=== PATIENT | female | born 1970 | race American Indian/Alaskan Native ===

== ENCOUNTER 2016-12-09 03:20 | Emergency (ER) | payer OTHER ==
[~2016-12-09] VITALS: Ht 157.5 cm; Wt 77.1 kg
[~2016-12-09 03:20] MED LIST: ACETAMINOPHEN325 M1 PO; AVELOX400 MG PO; DOXYCYCLINE HY100 MG PO; FISH OIL 1,0001 EAC2 PO; FLAGYL500 MG PO; NORCO 10-325 T1 EACH PO; NORCO 5-325 TA1 EACH PO; TRAMADOL HCL50 MG PO
[2016-12-09] MEDS ORDERED: CLINDAMYCIN HC300 MG PO (03:32)
[2016-12-09] MEDS ORDERED: MUPIROCIN15 GM TOP (03:33)
[2016-12-09] MEDS ORDERED: DICLOFENAC SODI75 MG PO (04:19)
[2016-12-09] MEDS ORDERED: CYCLOBENZAPRINE10 MG PO (04:19)
== END 2016-12-09 04:40 | disposition home or self-care (01) ==
LOC: ED 03:20
DX: S16.1XXA Strain of muscle, fascia and tendon at neck level, initial encounter (principal); F31.9 Bipolar disorder, unspecified; X58.XXXA Exposure to other specified factors, initial encounter; Z98.51 Tubal ligation status; Z90.49 Acquired absence of other specified parts of digestive tract; Z88.0 Allergy status to penicillin; Z88.8 Allergy status to other drugs, medicaments and biological substances; Z88.5 Allergy status to narcotic agent; Z88.2 Allergy status to sulfonamides; Z79.899 Other long term (current) drug therapy; Z79.2 Long term (current) use of antibiotics
CPT/HCPCS: 72040; 96372; 99283; J1885

== ENCOUNTER 2018-05-11 09:26 | Emergency (ER) | payer OTHER ==
[~2018-05-11] VITALS: Ht 157.5 cm; Wt 77.1 kg
[~2018-05-11 09:26] MED LIST changes: +CLINDAMYCIN HC300 MG PO; +CYCLOBENZAPRINE10 MG PO; +DICLOFENAC SODI75 MG PO; +MUPIROCIN15 GM TOP
[2018-05-11] MEDS ORDERED: RIFAMPIN300 MG PO (09:37)
[2018-05-11] MEDS ORDERED: CLEOCIN HCL300 MG PO (09:38)
[2018-05-11] MEDS ORDERED: LEVOTHYROXINE50 MCG PO (09:39)
[2018-05-11] MEDS ORDERED: CYCLOBENZAPRINE10 MG PO (10:07)
[2018-05-11] MEDS ORDERED: NORCO 5-325 TA1 EACH PO (12:39)
== END 2018-05-11 12:51 | disposition home or self-care (01) ==
LOC: ED 09:26
DX: M54.5 Low back pain (principal); F31.9 Bipolar disorder, unspecified; Z88.1 Allergy status to other antibiotic agents; Z88.0 Allergy status to penicillin; Z88.2 Allergy status to sulfonamides; Z79.899 Other long term (current) drug therapy
CPT/HCPCS: 74176; 81001; 96372; 99284-25; J1170; J1885

== ENCOUNTER 2023-12-26 09:52 | Emergency (ER) | payer OTHER ==
[~2023-12-26] VITALS: Ht 157.5 cm; Wt 98.6 kg
[~2023-12-26 09:52] MED LIST changes: +CLEOCIN HCL300 MG PO; +LEVOTHYROXINE50 MCG PO; +RIFAMPIN300 MG PO
[2023-12-26] MEDS ORDERED: RIFAMPIN150 MG PO (10:13)
[2023-12-26] MEDS ORDERED: IBUPROFEN200 MG PO (10:14)
[2023-12-26] MEDS ORDERED: TYLENOL EXTRA500 MG PO (10:14)
[2023-12-26] MEDS ORDERED: ACETAMINOPHEN 500 MG TAB PO ONE (10:15)
[2023-12-26] MEDS ORDERED: CEPHALEXIN MONOHYDRATE 500 MG CAP PO ONE (11:30)
[2023-12-26] MEDS ORDERED: HYDROmorphone HCL 2 MG/ML VIAL IM ONE (11:45)
[2023-12-26] MEDS ORDERED: CEPHALEXIN500 M1 PO (11:46)
[2023-12-26] MEDS ORDERED: HYDROCODON-ACE1 EA11 PO (12:18)
[2023-12-26 12:24] VITALS: BP 117/71
== END 2023-12-26 12:24 | disposition home or self-care (01) ==
LOC: ED 09:52
DX: N61.1 Abscess of the breast and nipple (principal); Z88.1 Allergy status to other antibiotic agents; Z88.0 Allergy status to penicillin; Z88.5 Allergy status to narcotic agent; Z88.2 Allergy status to sulfonamides; Z79.899 Other long term (current) drug therapy
CPT/HCPCS: 10060; 76642; 99283-25; A9270; J1170

== ENCOUNTER 2024-10-14 14:41 | Emergency (ER) | payer OTHER ==
[~2024-10-14] VITALS: Ht 157.5 cm; Wt 101.0 kg
[~2024-10-14 14:41] MED LIST changes: +CEPHALEXIN500 M1 PO; +HYDROCODON-ACE1 EA11 PO; +IBUPROFEN200 MG PO; +RIFAMPIN150 MG PO; +TYLENOL EXTRA500 MG PO
[2024-10-14] MEDS ORDERED: LATANOPROST2.5 ML OPTH (15:35)
[2024-10-14] MEDS ORDERED: OMEGA-3 FISH O1 EAC4 PO (15:35)
[2024-10-14 15:43] LABS: BASOPHILS 1.2 % (0.1-1.2); EOSINOPHILS 1.8 % (0.7-5.8); HEMATOCRIT 42.2 % (34.1-44.9); HEMOGLOBIN 13.9 g/dL (11.2-15.7); LYMPHOCYTES 24.5 % (19.3-51.7); MCH 28.1 PG (25.6-32.2); MCHC 32.9 g/dL (32.2-35.5); MCV 85.4 fL (79.4-94.8); MONOCYTES 8.9 % (4.7-12.5); NEUTROPHILS 63.3 % (34.0-71.1); PLATELET COUNT 394 K/uL (182-369); RBC 4.94 M/uL (3.93-5.22)
[2024-10-14] MEDS ORDERED: ondansetron HCL 4 MG/2 ML VIAL IV ONE (15:45)
[2024-10-14 15:51] LABS: ALBUMIN 3.8 g/dL (3.4-5.0); ALBUMIN/GLOBULIN RATIO 0.97 (1.1-2.4); ANION GAP 13.8 (7-21); BILIRUBIN, TOTAL 0.3 mg/dL (0.2-1.0); BUN/CREATININE RATIO 14.42 (6.0-28.6); CREATININE, SERUM 1.04 mg/dL (0.55-1.02); POTASSIUM 3.8 mmol/L (3.5-5.1); PROTEIN, TOTAL 7.7 g/dL (6.4-8.2)
[2024-10-14] MEDS ORDERED: MORPHINE SULFATE 4 MG/ML VIAL IV ONE (17:45)
[2024-10-14 18:45] VITALS: BP 127/86
== END 2024-10-14 18:45 | disposition home or self-care (01) ==
LOC: ED 14:41
PROVIDERS: Emergency Medicine
DX: N61.1 Abscess of the breast and nipple (principal); Z88.0 Allergy status to penicillin; Z88.5 Allergy status to narcotic agent; Z88.2 Allergy status to sulfonamides
CPT/HCPCS: 36415; 71260; 80053; 85025; 87070; 87205; 99284-25; J2270; J2405; Q9967

== ENCOUNTER 2025-02-12 08:09 | Inpatient (IN) | payer OTHER ==
[~2025-02-12] VITALS: Ht 157.5 cm; Wt 93.4 kg
[~2025-02-12 08:09] MED LIST changes: +LATANOPROST2.5 ML OPTH; +OMEGA-3 FISH O1 EAC4 PO
[2025-02-12] MEDS ORDERED: VITAMIN D3125 MC1 PO (08:28)
[2025-02-12 08:59] LABS: BASOPHILS 1.3 % (0.1-1.2); EOSINOPHILS 1.9 % (0.7-5.8); LYMPHOCYTES 23.8 % (19.3-51.7); MCH 28.7 PG (25.6-32.2); MCHC 33.4 g/dL (32.2-35.5); MCV 85.8 fL (79.4-94.8); MONOCYTES 7.0 % (4.7-12.5); NEUTROPHILS 65.8 % (34.0-71.1); RBC 5.20 M/uL (3.93-5.22)
[2025-02-12] MEDS ORDERED: OXYCODONE/APAP 5/325 TAB PO ONE (09:15)
[2025-02-12] MEDS ORDERED: ONDANSETRON 4 MG TAB ODT SL ONE (09:15)
[2025-02-12 09:17] LABS: ALT (SGPT) 31.0 U/L (14-59); AST (SGOT) 14.0 U/L (15-37); GLOMERULAR FILTRATION RATE,EST 89.0 mL/min (>60); PROTEIN, TOTAL 7.5 g/dL (6.4-8.2); UREA NITROGEN 10.0 mg/dL (7-18)
[2025-02-12 10:28] LABS: BLOOD/HGB, URINE NEGATIVE (Negative); KETONE, URINE NEGATIVE (Negative); LEUK ESTERASE, URINE NEGATIVE (negative); NITRITE, URINE NEGATIVE (negative)
[2025-02-12] MEDS ORDERED: CLINDAMYCIN PHOSPHATE/D5W 900 MG/50 ML PIGGYBACK IV ONE (10:30)
[2025-02-12] MEDS ORDERED: SEVOFLURANE 250 ML BTL INH ONE (12:18)
[2025-02-12 13:00] VITALS: BP 136/92
[2025-02-12] MEDS ORDERED: MORPHINE SULFATE 4 MG/ML VIAL IV PRN (13:00)
--- NOTE | 2025-02-12 13:16 | NUR ---
1255 - ADMITTED PT TO ROOM 115 VIA STRETCHER FROM ER. ACOMPANIED BY MOTHER
--- NOTE | 2025-02-12 13:48 | NUR ---
CALL TO PHARMACY, CLINDAMYCIN GIVEN AT 1043 IN ER. NEXT DOSE ORDERED FOR 1400, ORDER FOR Q8HRS. PER HARJINDER IN PHARMACY, HOLD THE 1400 DOSE AND GET BACK ON TRACK AT 2200. PRIMARY RN NOTIFIED OF ORDERS.
--- NOTE | 2025-02-12 13:52 | NUR ---
pt npo, tolerating well, does own oral care. up to brp, voided, back to bed, tolerated well, independent. medicated with morphine 4mg iv c/o R breast pain
[2025-02-12] MEDS ORDERED: CLINDAMYCIN PHOSPHATE/D5W 900 MG/50 ML PIGGYBACK IV SCH (14:00)
--- NOTE | 2025-02-12 15:32 | NUR ---
pt down for ct
[2025-02-12 15:49] VITALS: BP 116/50
[2025-02-12] MEDS ORDERED: XALATAN2.5 ML OU (15:49)
--- NOTE | 2025-02-12 16:22 | NUR ---
MED REC COMPLETE
--- NOTE | 2025-02-12 16:46 | NUR ---
back from DI, c/o feeling nauseated, will medicte with zofran
--- NOTE | 2025-02-12 16:58 | NUR ---
awake, c/o r breast p[ain 11/30, medicated with morphine 4mg IV, c/o feeling nauseated, medicated with Zofran 4mg IV. repositions self in bed, tolerating NPO status
--- NOTE | 2025-02-12 17:05 | NUR ---
Spoke with Joanie. She lives in town in a house with 1 step. She lives with her partner. She does not use any DME. She drives. She states her mom will help her as needed. She uses [facility]. She denies financial or safety concerns. States she has had issues with her breast since 2021. She had surgery in April and the wound has not closed. Will fu with pt tomorrow.
[2025-02-12 17:16] VITALS: BP 135/78
--- NOTE | 2025-02-12 18:35 | NUR ---
resting, eyes closed, no further c/o distress, on room air, repositions self in bed, voiding qs
[2025-02-12 18:37] VITALS: BP 135/78
--- NOTE | 2025-02-12 19:36 | NUR ---
RECEIVED REPORT FROM SIMON BAPTISTE. PT RESTING IN BED, REQUESTED HELP WITH EAR BUD PLACEMENT. DENIES ANY OTHER NEEDS OR CONCERNS AT THIS TIME. CALL LIGHT WITHIN REACH.
[2025-02-12] MEDS ORDERED: HYDROmorphone HCL 1 MG/ML SYR IV PRN (20:15)
[2025-02-12] MEDS ORDERED: LACTATED RINGER'S 1,000 ML IV SCH (20:15)
[2025-02-12] MEDS ORDERED: KETOROLAC TROMETHAMINE 30 MG/ML VIAL IV PRN (20:15)
--- NOTE | 2025-02-12 20:21 | NUR ---
DR MORRIS AT RN STATION.THIS RN ASKED MD IF HE WOULD LIKE THIS RN TO CALL IMAGING DEPT INTERPRETATION NOT YET VISIBLE. PER MD, HE ALREADY REVIEWED IMAGING, NO NEED. PRIMARY RN AWARE AND NO NEW ORDERS RECEIVED AT THIS TIME.
--- NOTE | 2025-02-12 20:30 | NUR ---
PT RESTING IN BED. UPDATED PT ON POC, MD IS ALLOWING REGULAR DIET UNTIL MIDNIGHT, THEN NPO. IVF INITIATED PER NEW ORDER, LR INFUSING. PT REPORTS 6/10 PAIN TO RIGHT BREAST W/ MOVEMENT, MINIMAL PAIN AT REST. LSC. HRR. BT HYPO, PT REPORTS INT NAUSEA. SANDWICH BOX AND MILK PROVIDED PER REQUEST. RIGHT BREAST HAS 2 OPEN AREA AT NIPPLE W/ SMALL AMT YELLOWISH DRNG. AREA CLEANSED AND SMALL GUAZE DRSG APPLIED. PT HAS VISITOR AT BEDSIDE. CALL LIGHT WITHIN REACH.
[2025-02-12 20:36] VITALS: BP 156/88
[2025-02-12] MEDS ORDERED: FAMOTIDINE 20 MG/ 2 ML VIAL IV SCH (21:00)
[2025-02-12 21:09] VITALS: BP 156/88
--- NOTE | 2025-02-12 21:16 | NUR ---
DR. MORRIS CONTACTED REGARDING ONGOING NAUSEA. NEW ORDER RECEIVED FOR PRN INAPSINE Q 6 HRS.
--- NOTE | 2025-02-12 21:30 | NUR ---
PRN IV INAPSINE ADMINISTERED PER NEW ORDER. PT REPORTS FEELING HOT AND COLD, FAN PROVIDED FOR COMFORT. ROUTINE TYLENOL GIVEN, REPORTS SOME RIGHT BREAST PAIN.
[2025-02-12] MEDS ORDERED: ACETAMINOPHEN 500 MG TAB PO SCH (22:00)
[2025-02-12] MEDS ORDERED: CEFAZOLIN SODIUM 2 GM in SODIUM CHLORIDE 0.9% 100 ML IV SCH (22:00)
--- NOTE | 2025-02-12 22:08 | NUR ---
IV CLINDAMYCIN INITIATED PER EMAR. PT RESTING ON RIGHT SIDE, REPORTS DECREASED NAUSEA AFTER IV INAPSINE. PT SIPPING ON 7UP ABLE.
--- NOTE | 2025-02-12 23:07 | NUR ---
PT SLEEPING ON RIGHT SIDE, APPEARS COMFORTABLE AT THIS TIME.
[2025-02-13] VITALS (13 sets, daily range): BP systolic 115–178; BP diastolic 72–94
--- NOTE | 2025-02-13 00:04 | NUR ---
PT AWAKE, SLEEPING BETWEEN CARE. PT IS NOW NPO. DENIES ANY OTHER NEEDS AT THIS TIME.
--- NOTE | 2025-02-13 01:30 | NUR ---
ASSISTED PT TO BR, VOIDS WNL. PT REPORTS FEELING MUCH BETTER, REPORTS SLEEPING OK. DENIES ANY FURTHER NEEDS.
--- NOTE | 2025-02-13 01:32 | NUR ---
MANAGER MUSIC OBTAINED VITALS AND I&O. PT STATES NO NEEDS AT THIS TIME. CALL LIGHT WITHIN REACH.
--- NOTE | 2025-02-13 05:51 | NUR ---
PT ASSISTED TO BR, SBA. VOIDS WNL. UP TO SINK FOR AM CARE AND ORAL CARE. MEDICATED PT W/ PRN TORADOL FOR C/O 11/30 RIGHT BREAST PAIN. RIGHT BREAST GUAZE DRSG W/ SMALL AMT DRIED YELLOW DRNG. PT UP IN RECLINER. CALL LIGHT WITHIN REACH. NPO AT THIS TIME.
--- NOTE | 2025-02-13 06:55 | NUR ---
scheduled iv abx reginald, primary rn connecting pt back to pump. iv site wnl. prn zofran also given-see emar. call light in reach, no additional needs or concerns.
--- NOTE | 2025-02-13 07:12 | NUR ---
Pt report received from SIMON Yeager. Pt is resting supine in bed with HOB elevated. Pt states she has mostly had issues with nausea but also states that she has pressure in her bowels like she needs to have a BM but when she goes to the bathroom to try, she doesn't . She states she has been passing "little toots" and was encouraged to continue ambulating and/or changing positions in bed to move the gas around. Pt denies any further needs at this time. Side rails up x4, bedside table and call light in reach. White board updated.
--- NOTE | 2025-02-13 07:45 | NUR ---
Advised by SIMON Nunez that she thinks this pt's IV has infiltrated. In with pt at this time to assess IV site. Left medial elbow appears "puffy" compared to the right elbow and pt reports stinging with flush, although there is blood return and she "tastes" saline. IVF stopped at this time and bathhouse attendant called and requested to place an U/S guided IV or assist with IV insertion as there have been multiple attempts, according to the pt.
--- NOTE | 2025-02-13 09:50 | NUR ---
In with pt for med administration and assessment. Pt is A&O, resting in bed with HOB elevated. She reports some nausea and is passing gas still. She states she has a headache, in the forehead, but wants to try an ice pack and heat pack to alternate and cover her forehead and eyes with first. Dr. Lamb in with pt to discuss surgical consent, pt verbalized understanding and signed consent, this RN to witness. Pt has no questions. Call light in reach.
--- NOTE | 2025-02-13 10:08 | NUR ---
INTO SEE PATIENT. PATIENT TO GO HOME WITH LIFE PARTNER WHEN MEDICALLY CLEARED FOR D/C. NO FUTHER CM NEEDS.
--- NOTE | 2025-02-13 12:08 | NUR ---
In with pt for wipe down, clean gown, and linen change. Aide Ame in to assist. LR on straight tubing with extension set spiked and hung. SIMON Covington from OR in to transfer pt to day surgery. Pt donned clean non-slip socks, clean gown, and returned to bed, SCDs applied. SIMON Covington transferred pt via bed to Day surgery at approximately 1215 hours. Pt's mother followed them and has the pt's cell phone. The rest of her personal belongings were placed in the closet in the pt's room.
[2025-02-13] MEDS ORDERED: MIDAZOLAM HCL 2 MG/2 ML VIAL ONE (12:17)
[2025-02-13] MEDS ORDERED: fentaNYL citrate 100 MCG/2 ML VIAL ONE (12:17)
[2025-02-13] MEDS ORDERED: LIDOCAINE HCL 2% 5 ML SDV ONE (12:17)
[2025-02-13] MEDS ORDERED: SODIUM CHLORIDE 0.9% 20 ML IV ONE (12:31)
[2025-02-13] MEDS ORDERED: CEFAZOLIN SOD 1,000 MG/10 ML VIAL ONE (12:31)
[2025-02-13] MEDS ORDERED: KETOROLAC TROMETHAMINE 30 MG/ML VIAL ONE (13:29)
[2025-02-13] MEDS ORDERED: ACETAMINOPHEN 1,000 MG/100 ML VIAL IV ONE (14:00)
[2025-02-13] MEDS ORDERED: DOXYCYCLINE HYCLATE 100 MG CAP PO SCH (14:00)
[2025-02-13] MEDS ORDERED: fentaNYL citrate 50 MCG/ML SDV ONE (14:01)
[2025-02-13] MEDS ORDERED: fentaNYL citrate 100 MCG/2 ML VIAL IV PRN (14:15)
--- NOTE | 2025-02-13 14:25 | NUR ---
02/13/25 1425 Shannan Ulrich 1340: PT ARRIVED TO PACU VIA BED. PT AROUSABLE TO STIMULI. PT ON 6L VIA MASK. PT HAD DRESSING IN PLACE TO RIGHT BREAST THAT WAS C/D/I. 1345: PT TITRATED TO RA AT THIS TIME 1350: PT HAS COMPLAINTS OF NAUSEA. GAVE INAPSINE IV AT THIS TIME. 1400: PT REPORTS NAUSEA WAS SLIGHTLY BETTER BUT HER BREST WAS PAINFUL. 9/10 AT THIS TIME. 25MCG FENTANYL GIVE IV AND 1G TYENOL IV GIVEN. 1421: PT CONTINUES TO COMPLAIN OF NAUSEA. GAVE 4MG ZOFRAN IV. 1425: PT REPORTS PAIN IS 6/10 AT THIS TIME. DRESSING TO RIGHT CHEST IS C/D/I.
--- NOTE | 2025-02-13 14:45 | NUR ---
Pt arrived to room, transferred via bed by INLAYER SILVER Kami. Pt is A&O, mother at bedside. Pt reports some nausea, however, pt has had all the anti emetics she can have at this time. Pt provided with an alcohol swab to smell which she states does help some. Pt reports she has to use the toilet to void. 1P SBA to the BSC. Pt reports feeling "woozy" but not dizzy or lightheaded. She was able to void 500ml clear yellow urine. SBA as pt transferred back in to bed. SCD's on, Tele #[id number] applied for bradycardia, VSS (P56), and pt positioned herself into a position of comfort (leaning towards her right side in bed with a pillow to support). Dressing is CDI. Side rails up x4, call light in reach. Personal belongings and bedside table in reach.
--- NOTE | 2025-02-13 16:18 | NUR ---
UR CLINICAL REVIEW: MCG-PER [facility]CG REVIEW MEETS INPT FOR RIGHT BREAST CELLULITIS WITH NEED FOR IV ABX AND I&D [facility] INPT 02/12/25 @ 2010 ORDER MATCHES REG CLINICALS FAXED TO [facility] FOR AUTH REVIEW DISCHARGE TO HOME WHEN STABLE 02/14/25 DC REVIEW
--- NOTE | 2025-02-13 16:55 | NUR ---
In with pt for hourly VS. Pt states she is feeling much better and is no longer experiencing nausea. She states she needs to use the toilet and is able to ambulate, SBA, with L&TM, to the toilet in the bathroom without issue or complaint. Pt voided 400ml clear yellow urine and ambulated back to bed unassisted. Pt requested to keep SCDs off as they make her legs sweaty, and she will flex and extend her feet and legs to keep blood flowing. Pt's mother is at bedside. Side rails up x3, call light in reach. Pt provided with more miguelina crackers and apple juice.
--- NOTE | 2025-02-13 18:26 | HP ---
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 HISTORY OF PRESENT ILLNESS: This 54-year-old woman is a patient of [facility] and presented to the emergency room today where she was evaluated by Dr. Jam Mccain with complaints of increasing pain in the central right breast with mild erythema and tenderness. Her problem dates back to 2021, at which time, she had a breast abscess, requiring incision and drainage. She has been episodically treated by Dr. Ramirez in [facility] in the [facility]. In April, she saw him again following an incision and drainage of the right breast area with removal of small portion of a breast duct. She called to Dr. Ramirez's office and apparently was told that there was nothing more that could be done for her and to have [facility] organized for her to see an ID doctor. It is unclear if she has been identified as having Zuska disease, though she is clinically suspicious for it. Quite notably, patient also has a concurrent history of hidradenitis suppurativa affecting dominantly her right axilla. She has had no inframammary involvement or groin involvement of that. She notes a flare in that disease at this time as well. Her last operation was in April of this year nine months ago, where infected tissue was removed and prolonged antibiotic course noted. PAST MEDICAL HISTORY: Notable for bipolar disease as well as a history of colonic polyps. She had a hidradenitis as previously identified. She does not drink alcohol. Does not smoke, though she does smoke marijuana. SURGICAL HISTORY: Includes labial surgery, neck plate with screws. Cadaveric bone with neck in the vertebrae, tubal ligation, cholecystectomy, cervical fusion, and removal of a right breast abscess and possibly cyst. She tells me her last mammogram was in 2021. She has no family history of breast cancer. ALLERGIES: Include penicillin, Cipro, codeine, ibuprofen, Bactrim. Electronically Signed By: THERESA MORRIS MD 02/13/25 1826 PATIENT NAME: LEELEE VALLES HISTORY AND PHYSICAL DATE OF : 70 REPORT #: [id number] PHYSICIAN: THERESA MORRIS MD PCP: TRANG JUDD PAC REPORT IS CONFIDENTIAL AND NOT TO BE RELEASED WITHOUT AUTHORIZATION [facility] [address], [place] [address] Signed CURRENT MEDICINES: At presentation include ibuprofen, Tylenol, vitamin D3, omega-3, fish oil. LABORATORY STUDIES: At presentation showed a white count of only 9.55, hematocrit 44.6, platelets 361,000. Chem profile normal. Creatinine 0.79. Prior to my evaluation, she did undergo an ultrasound of the breast which showed collections of minimally echogenic material medial and lateral to the right nipple communicating via retroareolar tunnel consistent with an abscess or cutaneo-cutaneous fistula. I had her undergo a CT scan of the breast for soft tissue evaluation of the breast tissue, which does not show any particular remarkable fluid collection at this time. REVIEW OF SYSTEMS: She denies any fever or chills. Has no shortness of breath or chest pain. Has no nipple discharge. The main complaint is central and lateral breast pain. PHYSICAL EXAMINATION: GENERAL: A pleasant, obese woman, who looks to be nontoxic. BMI is 37.7 with a height of 5 foot 2 inches, weight 93 kg. Trachea is midline. Chest shows normal respiratory excursion, pulses regular. Examination of the right breast shows an area of scarring in the medial aspect with nipple without significant distortion. She has no generalized cellulitic change, no edema. There is mild tenderness, however. Axilla was essentially notable for hidradenitis suppurativa. No draining sinuses at this moment, though she says it is "active." Abdomen is obese, but soft, easily palpated. 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 Recurrent abscesses are hallmark of the problem I have seen several times in the past. Drainage is the most important feature of it for those with drainable lesions (abscesses) and duct excision as undertaken by Dr. Ramirez beneficial in many cases. At this point, we will allow for regular diet tonight and tomorrow likely exploration in the operating room to provide for drainage in the area of tunneling that she had before. I am unaware of the relationship between Zuska disease and hidradenitis suppurativa, specifically whatever researched the matter. This does not appear to be hidradenitis of the breast; these cases I have seen almost always in the inframammary crease and not likely in the central portion of the breast, though this may be related to process or even the identical. I will need to investigate that further. Electronically Signed By: THERESA MORRIS MD 02/13/25 1826 PATIENT NAME: LEELEE VALLES HISTORY AND PHYSICAL DATE OF : 70 REPORT #: [id number] PHYSICIAN: THERESA MORRIS MD PCP: TRANG JUDD PAC REPORT IS CONFIDENTIAL AND NOT TO BE RELEASED WITHOUT AUTHORIZATION [facility] [address] [place], [place] [address] Signed MD LETICIA Sy/KYLE /[id number] cc: Dr. Kike Green [facility] Copies: ~ Electronically Signed By: THERESA MORRIS MD 02/13/25 1826 PATIENT NAME: LEELEE VALLES HISTORY AND PHYSICAL DATE OF : 70 REPORT #: [id number] PHYSICIAN: THERESA MORRIS MD PCP: TRANG JUDD PAC REPORT IS CONFIDENTIAL AND NOT TO BE RELEASED WITHOUT AUTHORIZATION
--- NOTE | 2025-02-13 19:37 | NUR ---
RECEIVED REPORT SIMON VALADEZ. PT RESTING IN BED, REPORTS SOME RIGHT BREAST PAIN. PRN IV DIALUDID OFFERED AND PT DECLINED AT THIS TIME, WANTS TO WAIT FOR TORADOL WHEN AVAIL.
--- NOTE | 2025-02-13 20:22 | NUR ---
CALL LIGHT ANSWERED. PT NEEDED TO USE BATHROOM. QUILL BUNCHER AND SORTER SBA TO BATHROOM. PT VOIDED AND ASSISTED BACK TO BED. PT STATES SHE HAS A HEADACHE. VITALS AND I&O OBTAINED. PT STATES NO FURTHER NEEDS AT THIS TIME. CALL LIGHT WITHIN REACH.
--- NOTE | 2025-02-13 20:30 | NUR ---
PT SITTING EOB. REPORTS HEADACHE AND RIGHT BREAST PAIN, PT EMDICATED W/ PRN IV TORADOL PER EMAR. PT ALSO GIVEN COFFEE FOR CAFFEINE HEADACHE. LSC, CPOX IN PLACE. HRR, TELE IN PLACE, HR 60'S. BTA. REPORTS SOME LOOSE STOOLS. PT PROVIDED W/ YOGURT PER REQUEST. DENIES NAUSEA. LAC IV INFUSING LR PER EMAR. RIGHT BREAST DRSG CDI. PT REPORTS RIGHT BREAST IS VERY TENDER. PT AMBULATED TO BR W/ SBA, VOIDS WNL. PT ALLOWED TO BE IND TO BR AT THIS TIME.
[2025-02-13] MEDS ORDERED: FAMOTIDINE 20 MG TAB PO SCH (21:00)
--- NOTE | 2025-02-13 22:39 | NUR ---
IV ATB ADMINISTERED PER EMAR. PT UP TO BR IND. REPORTS SOME URINARY FREQUENCY.
--- NOTE | 2025-02-14 00:45 | NUR ---
PT ASLEEP ON RIGHT SIDE, APPEARS COMFORTABLE. IVF INFUSING. CALL LIGHT WITHIN REACH.
[2025-02-14 01:48] VITALS: BP 128/68
--- NOTE | 2025-02-14 01:50 | NUR ---
PRODUCTION LINE TECHNICIAN OBTAINED VITALS AND I&O. PT STATES NO NEEDS AT THIS TIME. CALL LIGHT WITHIN REACH.
[2025-02-14 02:25] VITALS: BP 128/68
--- NOTE | 2025-02-14 02:54 | NUR ---
PT SLEEPING SOUNDLY ON RIGHT SIDE. CPOX IN PLACE.
[2025-02-14 05:52] VITALS: BP 137/95
[2025-02-14 06:06] VITALS: BP 137/95
--- NOTE | 2025-02-14 06:06 | NUR ---
PT UP IN RECLINER, GAS WELDING MACHINE OPERATOR OBTAINING VS. PT REPORTS NAUSEA CREEPING UP. NAFISA DELORES AND CRACKERS PROVIDED PER REQUEST. IV ATB STARTED PER EMAR. RIGHT BREAST DRSG CDI.
--- NOTE | 2025-02-14 06:31 | NUR ---
PT BACK IN BED, CONTINUES TO BE NAUSEATED. MEDICATED W/ PRN IV INAPSINE. IV ATB'S CONTINUE TO INFUSE.
--- NOTE | 2025-02-14 07:15 | NUR ---
REPORT RECIEVED FROM SIMON SETH. PATIENT RESTING IN BED WATCHING TV. PATIENT REPORTS NAUSEA "ISN'T GONE, BUT IS GETTING BETTER". PATIENT DENIES ANY NEEDS AT THIS TIME. CALL LIGHT AND PERSONAL BELONGINGS ARE WITHIN REACH. WHITE BOARD UPDATED.
--- NOTE | 2025-02-14 08:01 | NUR ---
PATIENT IV OCCLUDED. IV RESTARTED. PATIENT REPORTS "I'M DOING OKAY WHEN ASKED ABOUT HER NAUSEA. PATIENT DENIES ANY NEEDS AT THIS TIME. CALL LIGHT AND PERSONAL BELONGINGS ARE WITHIN REACH.
--- NOTE | 2025-02-14 09:39 | NUR ---
PATIENT MEDICATED PER EMAR. PATIENT ASSESSMENT COMPLETED. PATIENT IS ALERT AND ORIENTED AND DENIES ANY PAIN OR NAUSEA AT THIS TIME. PATIENT DRESSING IS CLEAN DRY AND INTACT. NEW BAG OF IV FLUIDS INFUISING PER ORDER. PATIENT WITHOUT FURTHER NEEDS AT THIS TIME. CALL LIGHT AND PERSONAL BELONGINGS ARE WITHIN REACH.
[2025-02-14] MEDS ORDERED: ACETAMINOPHEN500 MG PO (10:17)
[2025-02-14] MEDS ORDERED: DOXYCYCLINE HY100 MG PO (10:17)
[2025-02-14] MEDS ORDERED: HYDROMORPHONE HC2 MG PO (10:17)
[2025-02-14] MEDS ORDERED: METRONIDAZOLE250 MG PO (10:21)
[2025-02-14] MEDS ORDERED: TYLENOL EXTRA500 MG PO (10:22)
[2025-02-14] MEDS ORDERED: PERCOCET 7.5-31 EACH PO (10:24)
[2025-02-14 10:50] VITALS: BP 185/96
--- NOTE | 2025-02-14 10:59 | NUR ---
PATIENT IS UP IN HER CHAIR AT THIS TIME, GARNETT FEEDER CHARTED VITALS AND I&O'S, I SET HER UP FOR A SHOWER, CALL LIGHT WITH IN REACH AND NOTHING ELSE NEEDED AT THIS TIME.
[2025-02-14 11:00] VITALS: BP 185/96
--- NOTE | 2025-02-14 11:08 | NUR ---
PATIENT WOUND DRESSING REMOVED. BLEEDING CONTROLLED. SEROUSSANGUINOUS DRAINAGE NOTED TO INSIDE OF DRESSING, BUT NO CURRENT DRAINAGE NOTED TO PATIENT'S BREAST. PATIENT EDUCATED ON HIBICLENS AND USE FOR SHOWER. PATIENT WITH VERBAL UNDERSTANDING. KERRY DANIELS IN ROOM REMOVING PATIENT'S IV AND SETTING PATIENT UP FOR A SHOWER. CALL LIGHT AND PERSONAL BELONGINGS ARE WITHIN REACH. IV FLUIDS STOPPED AT THIS TIME.
--- NOTE | 2025-02-14 11:43 | OR ---
[facility] [address], [place] [address] Signed DATE OF OPERATION: 02/13/2025 SURGEON: Theresa Morris MD PREOPERATIVE DIAGNOSES: 1. 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 2. History of hidradenitis suppurativa of axilla. POSTOPERATIVE DIAGNOSES: 1. 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 2. History of hidradenitis suppurativa of axilla. 3. Chronic sinus probably epithelialized extending across the breast beneath areolar tissue. PROCEDURES: 1. Exam under anesthesia. 2. Debridement and excision of sinus tract and additional subareolar breast tissue. 3. Placement of yellow vessel loop drainage, separate stab incision medially, same site laterally (deep). ANESTHESIA: General LMA; Nell Boucher CRNA. INDICATION: This is a 54-year-old woman who is a patient at [facility] and more recently the patient of Caroline Judd PA-C and previously Dr. Ramirez in the [facility]. The patient has had problems for nearly two years of chronic sinus drainage following the duct excision by Dr. Ramirez in the past. She has had issues since April she says. She presented to the emergency room with a sinus tract that had largely closed over extending from the medial aspect of the right breast to the lateral not far from the areolar margin. The patient has had a protracted and extensive antibiotic therapy without healing of this tract. The patient was advised to seek help from the Infectious Disease expert. She presented in the emergency room where she was found to have tenderness of the breast, but no sign of generalized cellulitis. The sinus tract that had been draining was quite obviously not epithelialized. Imaging studies included ultrasound relatively unrevealing and a CT scan confirming the cutaneo-cutaneous fistula (sinus tract) with skin thickening. I have recommended exam under anesthesia and excision of the sinus tract as appropriate and other related efforts to characterize Electronically Signed By: THERESA MORRIS MD 02/14/25 1143 PATIENT NAME: LEELEE VALLES OPERATIVE REPORT DATE OF : 70 REPORT #: [id number] PHYSICIAN: THERESA MORRIS MD PCP: CAROLINE JUDD PAC REPORT IS CONFIDENTIAL AND NOT TO BE RELEASED WITHOUT AUTHORIZATION [facility] [address], [place] [address] Signed this chronic infection, remove that perpetuating source, mindful of the underlying diagnosis of possible Zuska's disease (squamous metaplasia with secondary infection). The patient understands the risk of bleeding, infection, failure to cure the problem and so on. FINDINGS: The sinus tract that coursed below the areola as expected and the tract was chronically inflammmed and probably epithelialized as well. Incision in the medial aspect of the areolar margin allowed for wide opening of the subareolar space. Debridement of the tract and debridement of other breast tissue-- essentially a subareolar excision. Gram stain and cultures were obtained. Divided parenchyma was drained deeply by a yellow vessel loop through a separate stab incision medially and exiting the original drainage site laterally. The parenchyma was reapproximated loosely over this area to perpetuate good breast contour and few interrupted Vicryl sutures deep dermis were used avoiding tightly closing the areolar margin proper. DESCRIPTION OF PROCEDURE: The patient was brought to the operating room, given a general LMA type anesthetic. Preoperative antibiotic Ancef and Flagyl had been given. Sequential compression device stockings were used. The right breast was prepared with a chlorhexidine solution and draped sterilely. An opening medial and lateral beneath the subareolar area was identified and a hemostat passed through this well-formed tract. Some purulent material was noted, though no large abscess was noted. This was gram stain and cultured. An incomplete circumareolar incision was made from the 12 o' clock to 3 o' clock position allowing for examination beneath the areola and identification of the tract. It appeared to be a long-standing epithelialized and was excised with sharp dissection. Additional tissue was excised sharply deep to this on the high probability this represented the inflammatory focus itself. Irrigation was undertaken deeply with sterile saline identifying small bleeding sites which were secured with electrocautery. A medial stab incision was made and a yellow vessel loop passed from medial to lateral through the previous sinus tract to the lateral aspect of the nipple areolar margin. This was made deep to the previously debrided and excised parenchyma. The breast tissue was reapproximated with interrupted 2-0 Vicryl over this area. In the more superficial space, the dermis of the skin and that of the areola was reapproximated loosely. The vessel loop was tied so as to provide adequate drainage as appropriate. Fluff gauze was applied as was an ABD pad. She was ultimately extubated and transferred to the recovery room in good condition having suffered no complications. Sponge, needle, and instrument counts were reported as correct x3. Electronically Signed By: THERESA MORRIS MD 02/14/25 1143 PATIENT NAME: LEELEE VALLES OPERATIVE REPORT DATE OF : 70 REPORT #: [id number] PHYSICIAN: THERESA MORRIS MD PCP: CAROLINE JUDD PAC REPORT IS CONFIDENTIAL AND NOT TO BE RELEASED WITHOUT AUTHORIZATION [address] [place], [place] [address] Signed MD LETICIA Sy/KYLE /[id number] cc: Dr. Ashley Judd Copies: CAROLINE JUDD PAC ~ Electronically Signed By: THERESA MORRIS MD 02/14/25 1143 PATIENT NAME: LEELEE VALLES OPERATIVE REPORT DATE OF : 70 REPORT #: [id number] PHYSICIAN: THERESA MORRIS MD PCP: CAROLINE JUDD PAC REPORT IS CONFIDENTIAL AND NOT TO BE RELEASED WITHOUT AUTHORIZATION
--- NOTE | 2025-02-18 11:20 | DS ---
[facility] [address] [place], [place] [address] Signed ADMISSION DATE: 02/12/2025 DISCHARGE DATE: 02/14/2025 REASON FOR ADMISSION: Recurrent right breast abscess, tenderness and cellulitic change. HISTORY OF PRESENT ILLNESS: This 54-year-old [place]ian woman is a patient at [facility] and the patient of Caroline Judd. She presented to the emergency room where she was evaluated by Dr. Mccain with complaints of increasing pain in the right central breast with mild erythema and tenderness. The patient has had problems with the right breast since 2021 at which time she had a breast abscess requiring incision and drainage. She was episodically treated by Dr. Ramirez at [facility] in the [facility]. She saw him in April following incision and drainage of right breast area with removal of small portion of breast duct. She had some sort of drain passing through this area from lateral to medial beneath the areola itself. She has had recurrent symptoms of pain and drainage and a multitude of antibiotic courses have been given she tells me. She has no drain in place right now, but two areas of previous drain exit sites were inflamed and draining somewhat purulent material. She is admitted for further evaluation and care. PAST MEDICAL HISTORY: Notable for hidradenitis suppurativa of the right axilla but no where in the region of the breast proper. BMI is 37.7. PHYSICAL EXAMINATION: GENERAL: Pleasant, obese [place]ian woman who look to be nontoxic. BMI is 37.7, height 5 feet 2 inches, weight is 93 kg. NECK: Trachea is midline. CHEST: Clear. HEART: Regular without murmur. BREASTS: In the right breast in the central portion were two small raw areas medial and lateral to the areola with a bit of mucopurulent exudate, but not much. There is no sign of generalized mastitis, but tenderness was noted. 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 She has undergone excision of ductal tissue and placement of a drain by Dr. Ramirez in the [facility], but once drain was out, persistence of the problem has been noted. I do not have actual records of this. This is much by family history as related by patient. The relationship of right axillary hidradenitis suppurativa is uncertain. She is admitted Electronically Signed By: THERESA MORRIS MD 02/18/25 1120 PATIENT NAME: LEELEE VALLES DISCHARGE SUMMARY DATE OF : 70 REPORT #: [id number] PHYSICIAN: THERESA MORRIS MD PCP: CAROLINE JUDD PAC REPORT IS CONFIDENTIAL AND NOT TO BE RELEASED WITHOUT AUTHORIZATION [facility] [address] [place], [place] [address] Signed to the hospital, given IV antibiotics including Flagyl and Ancef. On February 13, 2025, she underwent exam under anesthesia. The tract from medial to lateral beneath the areola was well formed and apparently well epithelialized tract with mucopurulent discharge. A curvilinear incision was made medial from the 12 o' clock to 3 o' clock position allowing for examination of the tract. It was sharply excised from surrounding breast parenchyma, which appeared otherwise normal. Once hemostasis was assured and irrigation undertaken fully through a separate stab incision, a yellow vessel loop was placed in the depths of the breast beneath the area of reapproximated breast parenchyma and tied in a knot. The deep dermis of the circumareolar incision was reapproximated with interrupted 2-0 Vicryl but not more fully close than that to allow for drainage. Following operation, she is feeling markedly better. Antibiotic initiated include doxycycline and at discharge will include Flagyl. The possibility of this infecting Zuska's disease is relatively high in my opinion and we will be mindful of that and the special features associated with this management. She is discharged to home to do wound care herself, changing her dressing on a daily basis. She is recommended to shower daily and allow water to have contact with the healing wound. Hibiclens soap can be given and use with I believe as well. She will continue with antibiotics at discharge. Quite notably, the Gram stain and culture are not yet available. DISCHARGE MEDICATIONS: Will include: 1. Doxycycline 100 mg p.o. b.i.d., #20. 2. Dilaudid 2 mg 1-2 p.o. q.4 hours p.r.n. pain, #10, refill 0. 3. Tylenol 500 mg two tablets p.o. q.6 hours as needed for pain, #60, refill 0. 4. Flagyl 250 mg p.o. t.i.d. #30, refill 0. 5. [place]-3 fatty acid fish oil tablet. 6. Vitamin D3 capsule one p.o. daily. FOLLOWUP PLAN: She will return to see me in approximately 1 to 2 weeks at which point we may remove the drain depending on how healing is going. We await cultures Gram stain and of course pathology report. She will call my office on Sunday to set up an appointment as previously noted. DISCHARGE DIAGNOSES: 1. 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 2. Recurrent inflammation, edema, and drainage at previous drainage site; high suspicion Electronically Signed By: THERESA MORRIS MD 02/18/25 1209 PATIENT NAME: LEELEE VALLES DISCHARGE SUMMARY DATE OF : 70 REPORT #: [id number] PHYSICIAN: THERESA MORRIS MD PCP: CAROLINE JUDD PAC REPORT IS CONFIDENTIAL AND NOT TO BE RELEASED WITHOUT AUTHORIZATION [facility] [address] [place] [id number] Signed for Jacindaase. 3. Morbid obesity. 4. Allergy to codeine, ibuprofen, Bactrim, and ciprofloxacin. MD LETICIA Sy/MODL /[id number] cc: Dr. Jam Judd Copies: CAROLINE JUDD PAC ~ Electronically Signed By: THERESA MORRIS MD 02/18/25 1120 PATIENT NAME: LEELEE VALLES DISCHARGE SUMMARY DATE OF : 70 REPORT #: [id number] PHYSICIAN: THERESA MORRIS MD PCP: CAROLINE JUDD PAC REPORT IS CONFIDENTIAL AND NOT TO BE RELEASED WITHOUT AUTHORIZATION
--- NOTE | 2025-02-19 09:47 | PATH ---
[facility] [address] [place], [place] [address] Signed SPECIMEN(S): A RIGHT BREAST ABSCESS SPECIMEN SOURCE: A. RIGHT BREAST ABSCESS CLINICAL HISTORY: Right breast abscess rule out Zuckus (sp) disease. FINAL PATHOLOGIC DIAGNOSIS: Right breast abscess, excisional biopsy: - Breast abscess with surrounding reactive change. - Additional findings: Fibrocystic change, usual-type ductal hyperplasia, and focal atypical lobular hyperplasia. COMMENT: The findings of keratinizing squamous metaplasia of lactiferous ducts (SMOLD/Zuska's disease) is not evident. DWS:yuniel MICROSCOPIC EXAMINATION: Histologic sections of all submitted blocks are examined by light microscopy. These findings, together with the gross examination, support the pathologic diagnosis. IHC for CK5/6 on block A3 supports the diagnosis. GROSS DESCRIPTION: The specimen, labeled and designated "Viktoriya Toscano, right breast subareolar sinus," is received in formalin and consists of 17 g, 6.4 x 4.5 x 2.8 cm aggregate of yellow-medrano indurated fibroadipose tissue. Several of the tissue fragments are partially surfaced by a red granular tissue. The tissue is inked and serially sectioned revealing approximately 60% of the specimen is yellow-medrano greasy adipose tissue and 40% is a pink-medrano white dense rubbery fibrous tissue. A discrete mass lesion is not grossly identified. Prop Worker sections are submitted in (A1-A6). Time of collection: 7:15 PM February 13, 2025. Time into formalin: 7:15 PM February 13, 2025. Processor load time: 9 AM February 17, 2025. Total fixation time in formalin: 85 hours 45 minutes The breast specimen processed exceeds the fixation time standards of 6-72 hrs., which have been set by the [employer] (ASCO) and the PATIENT NAME: LEELEE TOSCANO PATHOLOGY DATE OF : 70 REPORT #: [id number] PHYSICIAN: DU PATHOLOGY PCP: TRANG JUDD PAC REPORT IS CONFIDENTIAL AND NOT TO BE RELEASED WITHOUT AUTHORIZATION [facility] [address] [place], [place] [address] Signed [employer] ([employer]), to ensure appropriate tissue quality for effective Her2 receptor testing. FB (under the direct supervision of a pathologist) The Gross Description was prepared using a voice recognition system. The report was reviewed for accuracy; however, sound-alike word errors, addition and/or deletions may occur. If there is any question about this report, please contact Client Services. PERFORMING LABORATORY: Technical component was performed by [facility], [address] [place] [id number] (CLIA# [id number]). Professional interpretation was performed by [facility], [address] [place] [id number] (CLIA#: [id number]). Diagnostician: Cory Reyes MD Pathologist Electronically Signed 02/19/2025 Copies: ~ PATIENT NAME: LEELEE TOSCANO PATHOLOGY DATE OF : 70 REPORT #: [id number] PHYSICIAN: DU PIZANO PCP: TRANG JUDD PAC REPORT IS CONFIDENTIAL AND NOT TO BE RELEASED WITHOUT AUTHORIZATION
== END 2025-02-14 12:25 | disposition home or self-care (01) | DRG 585 ==
LOC: ED 08:09 → MS 11:03
PROVIDERS: Emergency Medicine; ADMIT Surgery; ATTEND Surgery
PROC: 3E03329 Introduction of Other Anti-infective into Peripheral Vein, Percutaneous Approach (ICD-10-PCS; 2025-02-12)
PROC: 0HBT0ZZ Excision of Right Breast, Open Approach (ICD-10-PCS; principal; 2025-02-13 12:45)
DX: N61.1 Abscess of the breast and nipple (principal); N60.81 Other benign mammary dysplasias of right breast; F31.9 Bipolar disorder, unspecified; F12.90 Cannabis use, unspecified, uncomplicated; L73.2 Hidradenitis suppurativa; E66.01 Morbid (severe) obesity due to excess calories; Z98.890 Other specified postprocedural states; Z98.1 Arthrodesis status; Z90.49 Acquired absence of other specified parts of digestive tract; Z98.51 Tubal ligation status; Z88.0 Allergy status to penicillin; Z88.1 Allergy status to other antibiotic agents; Z88.2 Allergy status to sulfonamides; Z88.5 Allergy status to narcotic agent; Z88.6 Allergy status to analgesic agent; Z88.8 Allergy status to other drugs, medicaments and biological substances; Z79.899 Other long term (current) drug therapy; Z68.37 Body mass index [BMI] 37.0-37.9, adult
CPT/HCPCS: 00400; 36415; 71260; 76642; 80053; 81003; 85025; 87070; 87075; 87205; 88305; 88341; 88342; 94762; 96365; 96375; 99285-25; A9270; J0131; J0688; J0690; J1790; J1885; J2003; J2250; J2270; J2405; J2704; J3010; J3490; J7121; Q9967